=== PATIENT | male | born 1935 | race Asian ===

== ENCOUNTER 2017-08-08 14:35 | Inpatient (IN) | payer OTHER ==
[~2017-08-08] VITALS: Ht 170.2 cm; Wt 59.0 kg
[2017-08-08 14:39] VITALS: BP 134/65
--- NOTE | 2017-08-08 15:44 | Emergency Room Report ---
History of Present Illness General Chief Complaint: Altered Mental Status Source: Patient, EMS Present Illness HPI Patient is an 82-year-old male brought in by EMS after being found wandering the street. The patient was noted to have been Swedish speaking. Patient was noted to have complaints of epigastric pain which did not radiate. The patient had associated diarrhea.He had subjective fever. Allergies: Coded Allergies: UNABLE TO ASSESS (Unverified , 08/08/17) Patient History Past Medical History: see triage record Reviewed Nursing Documentation: PMH: Agreed; PSxH: Agreed Nursing Documentation-PMH Past Medical History Deferred: Pt Cognitively Impaired Review of Systems All Other Systems: limited - by poor historian Physical Exam Vital Signs Date Time Temp Pulse Resp B/P (MAP) Pulse Ox O2 Delivery O2 Flow Rate FiO2 08/08/17 14:31 97.9 66 20 134/65 98 Room Air 97.9 Sp02 EP Interpretation: reviewed, normal General Appearance: normal inspection, well appearing, no apparent distress, alert, Chronically Ill Head: atraumatic ENT: normal ENT inspection, hearing grossly normal, normal voice Neck: normal inspection, full range of motion, supple, no bony tend Respiratory: normal inspection, lungs clear, normal breath sounds, no respiratory distress, no retraction, no wheezing Cardiovascular #1: regular rate, rhythm, no edema Gastrointestinal: normal inspection, normal bowel sounds, non tender, soft, no guarding, no hernia Genitourinary: no CVA tenderness Musculoskeletal: normal inspection, back normal, normal range of motion Neurologic: normal inspection, alert, responsive, speech normal, other - oriented to person and place, does not know the month or day but knows year Psychiatric: normal inspection, judgement/insight normal, mood/affect normal Skin: normal color, no rash, other - abrasion to left forearm superficial Medical Decision Making Diagnostic Impression: Primary Impression: Altered mental status Additional Impressions: Dehydration Rhabdomyolysis UTI (urinary tract infection) ER Course Patient presented for altered mental status. Differential diagnosis included but was not limited to ischemic stroke, subarachnoid hemorrhage, hypoglycemia, spinal cord injury, neurodegenerative disorder, urinary tract infection, hypoxemia. Patient was noted to have CT head with atrophic changes. CT of abdomen and pelvis read by radiology showed no bowel dilation, free air or free fluid. Nonobstructing bilateral renal stones. Dr. Colón was contacted for Dr. Rene for inpatient management Labs Test 08/08/17 15:30 White Blood Count 8.7 K/UL (4.8-10.8) Red Blood Count 4.35 M/UL (4.70-6.10) Hemoglobin 13.7 G/DL (14.2-18.0) Hematocrit 40.9 % (42.0-52.0) Mean Corpuscular Volume 94 FL (80-99) Mean Corpuscular Hemoglobin 31.4 PG (27.0-31.0) Mean Corpuscular Hemoglobin Concent 33.5 G/DL (32.0-36.0) Red Cell Distribution Width 12.0 % (11.6-14.8) Platelet Count 258 K/UL (150-450) Mean Platelet Volume 6.2 FL (6.5-10.1) Neutrophils (%) (Auto) 73.4 % (45.0-75.0) Lymphocytes (%) (Auto) 15.4 % (20.0-45.0) Monocytes (%) (Auto) 8.3 % (1.0-10.0) Eosinophils (%) (Auto) 1.2 % (0.0-3.0) Basophils (%) (Auto) 1.8 % (0.0-2.0) Prothrombin Time 9.9 SEC (9.30-11.50) Prothromb Time International Ratio 0.9 (0.9-1.1) Activated Partial Thromboplast Time 18 SEC (23-33) Urine Color Dennise Urine Appearance Slightly cloudy Urine pH 5 (4.5-8.0) Urine Specific [place] 1.020 (1.005-1.035) Urine Protein 1+ (NEGATIVE) Urine Glucose (UA) Negative (NEGATIVE) Urine Ketones 2+ (NEGATIVE) Urine Occult Blood 1+ (NEGATIVE) Urine Nitrite Negative (NEGATIVE) Urine Bilirubin Negative (NEGATIVE) Urine Ictotest Negative Urine Urobilinogen Normal MG/DL (0.0-1.0) Urine Leukocyte Esterase 1+ (NEGATIVE) Urine RBC 2-4 /HPF (0 - 0) Urine WBC 2-4 /HPF (0 - 0) Urine Squamous Epithelial Cells Occasional /LPF Urine Bacteria Few /HPF (NONE) Urine Mucus Many /LPF (NONE/OCC) Sodium Level 149 MMOL/L (136-145) Potassium Level 4.2 MMOL/L (3.5-5.1) Chloride Level 107 MMOL/L (98-107) Carbon Dioxide Level 28 MMOL/L (21-32) Anion Gap 15 mmol/L (5-15) Blood Urea Nitrogen 75 mg/dL (7-18) Creatinine 1.3 MG/DL (0.55-1.30) Estimat Glomerular Filtration Rate mL/min (>60) Glucose Level 130 MG/DL (74-106) Lactic Acid Level 1.40 mmol/L (0.66-2.22) Calcium Level 9.5 MG/DL (8.5-10.1) Total Bilirubin 1.4 MG/DL (0.2-1.0) Direct Bilirubin 0.3 MG/DL (0.0-0.3) Aspartate Amino Transf (AST/SGOT) 120 U/L (15-37) Alanine Aminotransferase (ALT/SGPT) 72 U/L (12-78) Alkaline Phosphatase 73 U/L (46-116) Total Creatine Kinase 5591 U/L (26-308) Creatine Kinase MB 48.9 NG/ML (0.0-3.6) Creatine Kinase MB Relative Index 0.8 Troponin I 0.003 ng/mL (0.000-0.056) Total Protein 8.3 G/DL (6.4-8.2) Albumin 4.9 G/DL (3.4-5.0) Globulin 3.4 g/dL Albumin/Globulin Ratio 1.4 (1.0-2.7) EKG Diagnostic Results Rate: normal Rhythm: NSR ST Segments: no acute changes Last Vital Signs Date Time Temp Pulse Resp B/P (MAP) Pulse Ox O2 Delivery O2 Flow Rate FiO2 08/08/17 14:39 97.9 68 20 134/65 98 Room Air 97.9 Status: improved Disposition: ADMITTED INPATIENT Condition: Serious Scripts Unable to Obtain Active Prescriptions or Reported Meds Jamie Mcclellan Aug 08, 2017 15:44
[2017-08-08 15:51] LABS: BILIRUBIN, URINE NEGATIVE (NEGATIVE); COLOR,URINE AMBER; GLUCOSE, URINE (UA) NEGATIVE (NEGATIVE); KETONES,URINE 2+ (NEGATIVE); LEUKOCYTE ESTERASE ,URINE 1+ (NEGATIVE); NITRITE,URINE NEGATIVE (NEGATIVE); PH,URINE 5 (4.5-8.0); PROTEIN,URINE 1+ (NEGATIVE); UROBILINOGEN,URINE NORMAL MG/DL (0.0-1.0)
[2017-08-08 15:59] LABS: APPEARANCE,URINE SLIGHTLY CLOUDY
[2017-08-08 16:04] LABS: ANION GAP 15 mmol/L (5-15); BLOOD UREA NITROGEN 75 mg/dL (7-18); CALCIUM 9.5 MG/DL (8.5-10.1); CARBON DIOXIDE 28 MMOL/L (21-32); CHLORIDE 107 MMOL/L (98-107); CREATININE 1.3 MG/DL (0.55-1.30); POTASSIUM 4.2 MMOL/L (3.5-5.1); SODIUM 149 MMOL/L (136-145)
[2017-08-08 16:06] LABS: BASOPHILS % (AUTO) 1.8 % (0.0-2.0); EOSINOPHILS % (AUTO) 1.2 % (0.0-3.0); HEMATOCRIT 40.9 % (42.0-52.0); HEMOGLOBIN 13.7 G/DL (14.2-18.0); LYMPHOCYTES % (AUTO) 15.4 % (20.0-45.0); MEAN CORPUSCULAR VOLUME 94 FL (80-99); MONOCYTES % (AUTO) 8.3 % (1.0-10.0); NEUTROPHILS % (AUTO) 73.4 % (45.0-75.0); PLATELET COUNT 258 K/UL (150-450); RED BLOOD COUNT 4.35 M/UL (4.70-6.10); WHITE BLOOD COUNT 8.7 K/UL (4.8-10.8)
[2017-08-08 16:19] LABS: ALANINE AMINOTRANSFERASE 72 U/L (12-78); ALBUMIN 4.9 G/DL (3.4-5.0); ALBUMIN/GLOBULIN RATIO 1.4 (1.0-2.7); ALKALINE PHOSPHATASE 73 U/L (46-116); ASPARTATE AMINO TRANSFERASE 120 U/L (15-37); BILIRUBIN,TOTAL 1.4 MG/DL (0.2-1.0); CKMB 48.9 NG/ML (0.0-3.6); CREATINE KINASE 5591 U/L (26-308)
[2017-08-08] MEDS ORDERED: cefTRIAXone 1 GM in NS 55 ML IVPB ONE (16:30)
[2017-08-08 16:37] LABS: BILIRUBIN,DIRECT 0.3 MG/DL (0.0-0.3)
[2017-08-08 16:38] LABS: INR 0.9 (0.9-1.1)
[2017-08-08 18:18] VITALS: BP 108/52
[2017-08-08 19:30] VITALS: BP 112/51
[2017-08-08 20:10] VITALS: BP 112/51
--- NOTE | 2017-08-09 02:10 | Emergency Room Report ---
Physical Exam Vital Signs Date Time Temp Pulse Resp B/P (MAP) Pulse Ox O2 Delivery O2 Flow Rate FiO2 08/08/17 14:31 97.9 66 20 134/65 98 Room Air 97.9 Medical Decision Making Diagnostic Impression: Primary Impression: Altered mental status Additional Impressions: Rhabdomyolysis UTI (urinary tract infection) Dehydration ER Course This is an 82-year-old man any speaking male with no past medical history. He was admitted for altered mental status. He was found walking in the street and since he did not [place], EMS brought him here for evaluation. Patient was admitted. Patient keep wandering around the hospital wanting to leave. He was brought down to the ER because I speak Turkmen. Patient said that he recently moved to this area a few days ago. He said he knows where he lives but unable to give me the name of the street or address. He has his house [place] with him. I tried to convince him to stay while we call police to see if there is any missing person report. He also has a ID on him that showed and address and [place] He has his [employer] debit card on him also. He has his passport with him. He also has a large amount of money on him. He hasn't or [employer] receipt dated 07/08/2017. He withdrew it from the [employer] in [facility]. I called [employer] using his debit card. He gave me permission. He get monthly Social Security deposit of around $900. He then promptly withdrawal all of it the same day. He withdrew $900 on August 06. Speaking with him, I find him to be coherent and alert. He said that he has family here and lives with his son. He does not want to stay in the hospital. He knows the day, year and is name and date of . I spoke with him for about one hour trying to convince him to stay well police look for his place of residence. Toward the end he became angry because he wanted to leave. I asked him to stay at least into the morning so we can call web content & social media manager or [employer] to get an address. Patient did not want to stay. Shortly after he left , police showed up. They said they will try to see if there is a missing person and look for him. Last Vital Signs Date Time Temp Pulse Resp B/P (MAP) Pulse Ox O2 Delivery O2 Flow Rate FiO2 08/08/17 20:10 98.0 65 16 112/51 99 Room Air 98.0 Disposition: ADMITTED INPATIENT Condition: Serious Scripts Unable to Obtain Active Prescriptions or Reported Meds Referrals: NOT CHOSEN IPA/,REFERRING (PCP) GILDA LOPES M.D. Aug 09, 2017 02:10
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
--- NOTE | 2017-08-09 13:54 | Diagnostic Imaging Report ---
Indications: Headache Technique: Spiral acquisitions obtained through the brain. Angled axial and coronal 5 x 5 mm slices were reconstructed. Total dose length product 1541 mGycm. CTDI vol(s) 70 mGy. Dose reduction achieved using automated exposure control Comparison: None. Findings: Encephalomalacia seen in the right parasagittal frontal lobe and in the right posterior temporal lobe. There is generalized age-related enlargement of the ventricles and extra axial CSF spaces. There is periventricular deep white matter chronic ischemic change. There is evidence of prior ocular surgery. The visualized sinuses are unremarkable. Intact calvarium. Impression: Chronic and age-related changes. 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 The CT scanner at [facility] is accredited by the [employer] and the scans are performed using protocols designed to limit radiation exposure to as low as reasonably achievable to attain images of sufficient resolution adequate for diagnostic evaluation.
--- NOTE | 2017-08-09 13:59 | Diagnostic Imaging Report ---
Clinical Indication: Abdominal pain Technique: No oral contrast utilized, per emergency room physician request IV administration nonionic contrast. Venous phase spiral acquisition obtained through the abdomen and pelvis. Multiplanar reconstructions were generated. Total dose length product 570 mGycm. CTDIvol(s) 10 mGy. Dose reduction achieved using automated exposure control Comparison: none Findings: There is fairly extensive colonic diverticulosis. No definite evidence of diverticulitis. The appendix is normal. No small bowel distention. No free or loculated intraperitoneal air or fluid is evident. Distal esophagus, stomach, duodenum are unremarkable. The liver, gallbladder, bile ducts, pancreas, spleen, adrenals are unremarkable. The right kidney demonstrates a 2 mm interpolar region calyceal calculus. The left kidney demonstrates multiple calyceal calculi. There is also a calculus which is either calyceal or cortical, associated with an area of scarring. Small exophytic subcentimeter low-attenuation lesion is too small to characterize. No hydronephrosis or ureteral calculi demonstrated. The bladder is unremarkable. The prostate is unremarkable. Both testicles are incompletely descended. The included lung bases demonstrate posterior dependent atelectatic changes. The heart is enlarged. The bones are essentially unremarkable. Impression: No acute process Colonic diverticulosis. No evidence of diverticulitis Bilateral nonobstructive intrarenal calyceal calculi. Second left renal calculus may be calyceal or a dystrophic intraparenchymal calcification Subcentimeter low-attenuation left renal lesion, too small to characterize, most likely benign simple cyst Incompletely descended testicles. This agrees with the preliminary interpretation provided overnight by [facility] service. The CT scanner at [facility] is accredited by the [employer] and the scans are performed using protocols designed to limit radiation exposure to as low as reasonably achievable to attain images of sufficient resolution adequate for diagnostic evaluation.
--- NOTE | 2017-08-09 18:53 | Cardiology Report ---
APPROVED REPORT EKG Measurement Heart [id number] Sinus bradycardia Prolonged QT Abnormal ECG
--- NOTE | 2017-08-10 10:10 | Discharge Summary ---
Discharge Summary Discharge Summary Discharge Summary DATE OF ADMISSION: 08/08/2017 DATE OF LEAVING AGAINST MEDIAL ADVISE: 08/09/2017 REASON FOR ADMISSION: 82 years old Mozambican speaking male was brought by paramedics after being found wandering on the streets. Patient had complaints of epigastric nonradiating pain , subjective fever and diarrhea. Upon evaluation vital signs were stable, no fever. On physical examination chronically ill appearing Mozambican speaking male. CT head revealed no acute intracranial pathology. It did show old right cerebral infarcts along with chronic age-related changes. CT of the abdomen and pelvis revealed no acute process . It demonstrated colonic diverticulosis without evidence of diverticulitis. Bilateral nonobstructing intrarenal kidney stones were seen. Laboratory work revealed negative troponin. ECG revealed normal sinus rhythm, no acute ischemic changes. Chest x-ray revealed no acute cardiopulmonary pathology. CK -5591. BUN - 75 and creatinine- 1.3. Lactic acid within normal limits -1.4. AST- 120 with normal ALT. Total bilirubin slightly elevated -1.4. Urinalysis with evidence of pyuria, possible UTI. Patient admitted for further management to MedSurg floor with diagnosis of altered mental status ,dehydration, and rhabdomyolysis, possible UTI. HOSPITAL COURSE: Patient was admitted to medical surgical floor. Patient was started on generous IV hydration with plan to trend renal parameters, CK and LFT. Patient expressed desire to leave and declined to talk with the phone technical support coordinator. Patient was escorted to the emergency room to speak with emergency room doctor GILDA MARTEL who is fluent in Mozambican. Speaking with the patient, doctor found that he was coherent and alert. He had family and lives with his son. He is getting monthly Social Security income of around 900 dollars a month. Patient had with him ID with address, passport and debit card from [employer] and shook money. According to patient, he moved to new address 3 day ago. Patient expressed desire not to stay in the hospital. He knew the year and date of and his name. The patient stated that he knew where he lives, but was unable to state's street address. [employer] was contacted to try to locate family member and patient's current address. Emergency room doctor spoke with patient for about an hour, trying to convince him to stay. He asked him to stay till morning until social media manager will be available to contact son by phone provided or [employer] for address. Phone number for son, that patient provided, was silent . All risk and consequences of signing AGAINST MEDICAL ADVICE were discussed with patient in detail. At the end of the conversation the patient became angry and left AGAINST medical advise. Shortly after patient left, border police arrived. He stated that they would look for any missing person's report. FINAL DIAGNOSES: 1. Rhabdomyolysis. 2. Dehydration. 3. Possible UTI. 4. Acute kidney injury probably secondary to rhabdomyolysis I have been assigned to dictate discharge summary for this account. I was not involved in the patient's management. Chris RasmussenJennifer chairez NP Aug 10, 2017 10:10
== END 2017-08-09 00:25 | disposition left against medical advice (07) | DRG 558 ==
LOC: EDBD 14:35 → EMR 17:33 → EDBEDREQ 18:16 → 2E 18:50
DX: M62.82 Rhabdomyolysis (principal); N39.0 Urinary tract infection, site not specified; N17.9 Acute kidney failure, unspecified; E86.0 Dehydration; K57.90 Diverticulosis of intestine, part unspecified, without perforation or abscess without bleeding; R10.13 Epigastric pain; R19.7 Diarrhea, unspecified
CPT/HCPCS: 36415; 70450; 71045; 74177; 80053; 81003; 82248; 82550; 82553; 83605; 84484; 85025; 85610; 85730; 86710; 87040; 93005; 99285

== ENCOUNTER 2017-08-09 13:25 | Emergency (ER) | payer MEDICARE, MEDICAID ==
[~2017-08-09] VITALS: Ht 162.6 cm; Wt 59.0 kg
[2017-08-09 13:30] VITALS: BP 122/60
--- NOTE | 2017-08-09 14:09 | Emergency Room Report ---
History of Present Illness General Chief Complaint: Altered Level of Consciousness Present Illness HPI 82-year-old male presents to the emergency department for second day in a row for altered level of consciousness. Patient was evaluated here in the ER yesterday and diagnosed with rhabdomyolysis and was for admission. Patient apparently became A&O 3 and left AMA from the ED prior to transfer upstairs. Pt. did not want to stay despite multiple attempts to encourage him to stay. Patient appears to be more altered than he was yesterday he does respond to verbal stimuli. history of present illness and ROS is limited due to language barrier and patient's altered mental status. Family did present after several hours and reports hx of mild dementia. (Krista Hernandez P.A.) Allergies: Coded Allergies: No Known Allergies (Unverified , 08/08/17) Patient History Past Medical History: see triage record, dementia Past Surgical History: unable to obtain Pertinent Family History: unable to obtain Reviewed Nursing Documentation: PMH: Agreed; PSxH: Agreed (Krista Hernandez P.A.) Review of Systems All Other Systems: limited (Krista Hernandez P.A.) Physical Exam Vital Signs Date Time Temp Pulse Resp B/P (MAP) Pulse Ox O2 Delivery O2 Flow Rate FiO2 08/09/17 13:20 98.0 80 16 122/60 98 Room Air 98.1 Sp02 EP Interpretation: reviewed, normal General Appearance: no apparent distress, alert, GCS 15, non-toxic, lethargic Head: normocephalic, atraumatic Eyes: bilateral eye normal inspection, bilateral eye PERRL ENT: hearing grossly normal Neck: full range of motion Respiratory: lungs clear, normal breath sounds Cardiovascular #1: regular rate, rhythm, no edema Gastrointestinal: normal bowel sounds, non tender, soft Rectal: deferred Musculoskeletal: back normal, normal range of motion, non-tender Neurologic: responsive, motor strength/tone normal, other - Pt is lethargic, however responsive to verbal stimuli, , grossly normal Skin: normal color, no rash, warm/dry, well hydrated, other - no open wounds noted or evidence of trauma. (Krista Hernandez P.A.) Medical Decision Making PA Attestation Dr. killian is my supervising Physician whom patient management has been discussed with. (Krista Hernandez P.A.) Medicare Attestation The history of Jay Stover has been reviewed and management options for him have been examined and discussed by Luisito Clemons. I have personally examined and interviewed the patient. (Luisito Clemons MD) Diagnostic Impression: Primary Impression: Rhabdomyolysis Qualified Codes: M62.82 - Rhabdomyolysis Additional Impressions: Transaminitis Altered mental status Qualified Codes: R41.82 - Altered mental status, unspecified ER Course 82-year-old male presents to the emergency department for second day in a row for altered level of consciousness. Patient was evaluated here in the ER yesterday and diagnosed with rhabdomyolysis and was for admission. Patient apparently became A&O 3 and left AMA from the ED prior to transfer upstairs. Pt. did not want to stay despite multiple attempts to encourage him to stay. Patient appears to be more altered than he was yesterday he does respond to verbal stimuli. history of present illness and ROS is limited due to language barrier and patient's altered mental status. Family did present after several hours and reports hx of mild dementia. - Patient is arousable to verbal stimuli however not oriented. - Review of official radiology reports of previous Head and Abdominal CT performed at yesterdays visit were unremarkable for acute pathologies some noted degenerative changes, old cerebral infarct and renal calculi. Ddx considered but are not limited to OD, SI/HI, psychosis, UTI, intoxication, intracranial process, ETOH, Sepsis Vital signs: are WNL, pt. is afebrile H&PE are most consistent with AMS and hx of ED visit within the last 24 hours with Rhabdo dx. There is no obvious signs of trauma. ORDERS: none required at this time, the diagnosis is clinical -UA: pending/ order still active -CBC: unremarkable -CMP:elevated LFT's- increase from yesterday's values. BUN is 46 -Ck: 5,224 -Ck-MB: elevated 68 -Troponin: 0.00 -Lipase/Amylase: Unremarkable -Social Service Consult requested. ED INTERVENTIONS: - 1000cc NS x 2 DISPOSITION: at this time pt. will be admitted to Dr. Marshall at [facility] for Rhabdomyolysis. Dr. Marshall agreed to admit the pt. and to continue pt. care management. Labs Test 08/09/17 14:20 White Blood Count 6.2 K/UL (4.8-10.8) Red Blood Count 4.70 M/UL (4.70-6.10) Hemoglobin 15.5 G/DL (14.2-18.0) Hematocrit 43.8 % (42.0-52.0) Mean Corpuscular Volume 93 FL (80-99) Mean Corpuscular Hemoglobin 33.1 PG (27.0-31.0) Mean Corpuscular Hemoglobin Concent 35.5 G/DL (32.0-36.0) Red Cell Distribution Width 11.8 % (11.6-14.8) Platelet Count 229 K/UL (150-450) Mean Platelet Volume 6.5 FL (6.5-10.1) Neutrophils (%) (Auto) 75.6 % (45.0-75.0) Lymphocytes (%) (Auto) 13.7 % (20.0-45.0) Monocytes (%) (Auto) 9.0 % (1.0-10.0) Eosinophils (%) (Auto) 0.5 % (0.0-3.0) Basophils (%) (Auto) 1.1 % (0.0-2.0) Sodium Level 147 MMOL/L (136-145) Potassium Level 4.5 MMOL/L (3.5-5.1) Chloride Level 108 MMOL/L (98-107) Carbon Dioxide Level 25 MMOL/L (21-32) Anion Gap 14 mmol/L (5-15) Blood Urea Nitrogen 46 mg/dL (7-18) Creatinine 0.8 MG/DL (0.55-1.30) Estimat Glomerular Filtration Rate mL/min (>60) Glucose Level 112 MG/DL (74-106) Calcium Level 9.1 MG/DL (8.5-10.1) Total Bilirubin 0.9 MG/DL (0.2-1.0) Aspartate Amino Transf (AST/SGOT) 141 U/L (15-37) Alanine Aminotransferase (ALT/SGPT) 101 U/L (12-78) Alkaline Phosphatase 71 U/L (46-116) Total Creatine Kinase 5236 U/L (26-308) Creatine Kinase MB 68.0 NG/ML (0.0-3.6) Troponin I 0.000 ng/mL (0.000-0.056) Total Protein 7.6 G/DL (6.4-8.2) Albumin 4.5 G/DL (3.4-5.0) Globulin 3.1 g/dL Albumin/Globulin Ratio 1.5 (1.0-2.7) Amylase Level 26 U/L (25-115) Lipase 139 U/L (73-393) (Krista Hernandez) Last Vital Signs Date Time Temp Pulse Resp B/P (MAP) Pulse Ox O2 Delivery O2 Flow Rate FiO2 08/09/17 13:20 98.0 80 16 122/60 98 Room Air 98.1 (Krista Hernandez) Disposition: ADMITTED INPATIENT Condition: Serious Scripts Unable to Obtain Active Prescriptions or Reported Meds Krista Hernandez Aug 09, 2017 14:09 Luisito Clemons MD Aug 13, 2017 06:35
[2017-08-09 14:43] LABS: BASOPHILS % (AUTO) 1.1 % (0.0-2.0); EOSINOPHILS % (AUTO) 0.5 % (0.0-3.0); HEMATOCRIT 43.8 % (42.0-52.0); HEMOGLOBIN 15.5 G/DL (14.2-18.0); LYMPHOCYTES % (AUTO) 13.7 % (20.0-45.0); MEAN CORPUSCULAR VOLUME 93 FL (80-99); NEUTROPHILS % (AUTO) 75.6 % (45.0-75.0); PLATELET COUNT 229 K/UL (150-450); RED CELL DISTRIBUTION WIDTH 11.8 % (11.6-14.8); WHITE BLOOD COUNT 6.2 K/UL (4.8-10.8)
[2017-08-09 14:54] LABS: ANION GAP 14 mmol/L (5-15); BLOOD UREA NITROGEN 46 mg/dL (7-18); CALCIUM 9.1 MG/DL (8.5-10.1); CARBON DIOXIDE 25 MMOL/L (21-32); CHLORIDE 108 MMOL/L (98-107); CREATININE 0.8 MG/DL (0.55-1.30); POTASSIUM 4.5 MMOL/L (3.5-5.1); SODIUM 147 MMOL/L (136-145)
[2017-08-09 15:11] LABS: ALANINE AMINOTRANSFERASE 101 U/L (12-78); ALBUMIN 4.5 G/DL (3.4-5.0); ALBUMIN/GLOBULIN RATIO 1.5 (1.0-2.7); ALKALINE PHOSPHATASE 71 U/L (46-116); ASPARTATE AMINO TRANSFERASE 141 U/L (15-37); BILIRUBIN,TOTAL 0.9 MG/DL (0.2-1.0); CREATINE KINASE 5236 U/L (26-308)
[2017-08-09 19:40] VITALS: BP 116/76
[2017-08-09 22:18] VITALS: BP 114/51
[2017-08-09 22:35] VITALS: BP 114/51
== END 2017-08-09 22:35 | disposition other institution (70) ==
LOC: EDBD 13:25 → EMR 14:10 → EDBEDREQ 14:18 → EMR 22:35
DX: M62.82 Rhabdomyolysis (principal); R74.0 Nonspecific elevation of levels of transaminase and lactic acid dehydrogenase [LDH]; R41.82 Altered mental status, unspecified
CPT/HCPCS: 36415; 80053; 82150; 82550; 82553; 83690; 84484; 85025; 99285